=== PATIENT | female | born 2000 | race Hispanic/Latino ===

== ENCOUNTER 2020-09-25 23:37 | Emergency (ER) | payer BC, OTHER ==
[~2020-09-25] VITALS: Ht 162.6 cm; Wt 104.3 kg
[2020-09-25 23:43] VITALS: BP 164/92
[2020-09-26 02:10] VITALS: BP 126/78
== END 2020-09-26 02:19 | disposition home or self-care (01) ==
LOC: EDH 23:37
DX: S90.112A Contusion of left great toe without damage to nail, initial encounter (principal); W20.8XXA Other cause of strike by thrown, projected or falling object, initial encounter; Y93.01 Activity, walking, marching and hiking; Y92.512 Supermarket, store or market as the place of occurrence of the external cause; Y99.8 Other external cause status
CPT/HCPCS: 73630

== ENCOUNTER 2022-01-24 06:19 | Emergency (ER) | payer BC ==
[~2022-01-24] VITALS: Ht 162.6 cm; Wt 111.6 kg
[2022-01-24 06:27] VITALS: BP 151/88
[2022-01-24 06:57] LABS: BASOPHILS % (AUTO) 0.3 % (0.0-5.0); EOSINOPHILS % (AUTO) 0.8 % (0.0-8.0); HEMATOCRIT 47.5 % (36-48); LYMPHOCYTES % (AUTO) 11.6 % (21.0-51.0); MEAN CORPUSCULAR HEMOGLOBIN 29.9 pg (27.0-33.0); MEAN CORPUSCULAR HGB CONC 34.3 g/dL (32.0-36.0); MEAN CORPUSCULAR VOLUME 87.2 fL (79-99); MONOCYTES % (AUTO) 2.7 % (3.0-13.0); PLATELET COUNT (AUTO) 237 K/uL (130-400); RED BLOOD CELL COUNT(AUTO) 5.45 MIL/uL (4.00-5.50); RED CELL DISTRIBUTION WIDTH 12.2 % (11.0-15.5)
[2022-01-24 06:59] LABS: APPEARANCE,URINE CLOUDY (CLEAR); BILIRUBIN,URINE MODERATE mg/dL (NEGATIVE); COLOR,URINE YELLOW (YELLOW); GLUCOSE, URINE (UA) NEGATIVE (NEGATIVE); KETONES,URINE 15 mg/dL (NEGATIVE); LEUKOCYTE ESTERASE ,URINE NEGATIVE Leu/uL (NEGATIVE); NITRATE,URINE POSITIVE (NEGATIVE); OCCULT BLOOD,URINE LARGE (NEGATIVE); PROTEIN,URINE TRACE mg/dL (NEGATIVE)
[2022-01-24 07:02] LABS: HCG,QUALITATIVE URINE NEGATIVE (NEGATIVE)
[2022-01-24 07:10] LABS: BACTERIA,URINE Moderate /HPF (None Seen); MUCUS,URINE Rare LPF (None Seen); SQUAMOUS EPITHELIAL CELL,UR Few /HPF (0-2); WBC,URINE 0-1 /HPF (0-1)
[2022-01-24 07:11] LABS: ALBUMIN 4.1 g/dL (3.5-5.0); POTASSIUM 3.5 mmol/L (3.5-5.1)
[2022-01-24] MEDS ORDERED: KETOROLAC 15MG/ML VIAL (15MG/ML) IV ONE (07:30)
[2022-01-24] MEDS ORDERED: TAMSULOSIN HCL 0.4 MG CAP.ER.24H PO SCH (08:00)
[2022-01-24] MEDS ORDERED: 0.9% NACL 500ML IV.SOLN 500 ML IV ONE (08:00)
[2022-01-24] MEDS ORDERED: IBUP-2070 PO (08:47)
[2022-01-24] MEDS ORDERED: ACET-2079 PO (08:47)
[2022-01-24] MEDS ORDERED: CEPH500B PO (08:49)
[2022-01-24] MEDS ORDERED: MORPHINE 4 MG SYG IVP ONE ×2 (09:00)
[2022-01-24] MEDS ORDERED: ONDANSETRON 4MG INJ IVP ONE ×2 (09:00)
[2022-01-24] MEDS ORDERED: CEFTRIAXONE 1G VIAL IVP ONE (09:00)
== END 2022-01-24 09:56 | disposition home or self-care (01) ==
LOC: EDH 06:19
DX: N20.1 Calculus of ureter (principal); N23 Unspecified renal colic
CPT/HCPCS: 99284; 74176; 96374; 96375; 96361; 80053; 83690; 85025; 87088; 81001; 81025; 36415; J7040; J0696; J2405; J2270; J1885

== ENCOUNTER 2022-03-27 16:20 | Emergency (ER) | payer BC ==
[~2022-03-27] VITALS: Ht 160 cm; Wt 113.4 kg
[~2022-03-27 16:20] MED LIST: ACET-2079 PO; CEPH500B PO; IBUP-2070 PO
[2022-03-27 16:35] VITALS: BP 146/89
== END 2022-03-27 17:44 | disposition home or self-care (01) ==
LOC: EDH 16:20
DX: S51.811D Laceration without foreign body of right forearm, subsequent encounter (principal); Z79.1 Long term (current) use of non-steroidal anti-inflammatories (NSAID); X58.XXXD Exposure to other specified factors, subsequent encounter
CPT/HCPCS: 99281